=== PATIENT | male | born 1970 | race Caucasian/White ===

== ENCOUNTER 2020-08-11 15:40 | Observation (INO) ==
--- NOTE | 2020-08-11 16:08 | Emergency Department Note ---
Impression & Plan Chest pain, Hypertension, Abnormal ECG ED Provider Note NAME: MALINDA CHANDLER AGE: 50 SEX: M : 1970 ARRIVES VIA: Walk-In INFORMANT: Patient ED PROVIDER(S): Guero Knight DO CHIEF COMPLAINT: Chest pain HPI: Patient is a 42-year-old male who presents to the ER for chest pain and abnormal EKG. Patient notes that he has not seen a doctor for several years and start following up with a PCP. He was found to have high blood pressure. He was having chest pain intermittently over the past month. He notes he gets this daily. Is not associated with exertion. Last for several minutes and feels like a pressure. No shortness of breath, arm or jaw pain that he can think of. He has extensive family history of MIs starting at the age of 40s. He denies any chest pain now. No belly pain nausea vomiting or diarrhea. No dysuria urgency or frequency. ROS: See above HPI for pertinent positives & negatives. A total of 10 systems reviewed and were otherwise negative. PAST MEDICAL HISTORY:See Below PAST SURGICAL HISTORY:See Below FAMILY HISTORY:See Below SOCIAL HISTORY:See Below HOME MEDICATIONS:See Below ALLERGIES:See Below VITALS:See Below PHYSICAL EXAMINATION: GENERAL: Sitting up in bed, alert, well appearing, well nourished, no distress, non-toxic EYE EXAM: normal conjunctiva. OROPHARYNX: no exudate, no erythema, lips, buccal mucosa, and tongue normal and mucous membranes are moist NECK: supple, no nuchal rigidity, no adenopathy, non-tender LUNGS: Clear to auscultation. Normal chest wall mechanics HEART: no murmurs, S1 normal and S2 normal ABDOMEN: abdomen soft, non-tender, normo-active bowel sounds, no masses, no rebound or guarding. UPPER EXTREMITIES: upper extremities are grossly normal. LOWER EXTREMITIES: No pitting edema. Calves are equal bilateral NEURO EXAM: Normal sensorium, cranial nerves II-XII grossly intact, normal speech, no gross weakness of arms, no gross weakness of legs. MEDICAL DECISION MAKING: Patient is a 50-year-old male who presents ER for chest pain which has been intermittent over the past month. Seen by PCP found to have abnormal EKG referred in. IV was established blood work was obtained. Labs show no significant leukocytosis or anemia. BMP with LFTs bilirubin was unremarkable. Lipase was normal. Troponin was detectable but not positive. Covid was negative. Chest x-ray unremarkable. EKG did have ST wave changes. Discussed with the hospitalist for further evaluation. Patient was given IV labetalol for systolic pressures in the 200s. Triage Nursing notes reviewed. Limited review of prior medical records performed Vital Signs: reviewed and remarkable for HTN Differential diagnosis: Differential diagnoses includes but is not limited to acute coronary syndrome, myocardial infarction, pericarditis, pulmonary embolus, aortic dissection, pneumonia, pneumothorax, musculoskeletal, shingles, esophageal. ER treatment provided: See below Diagnostics interpreted by me: ECG: Sinus rhythm rate of 73 T wave flattening the high lateral leads T wave inversion in inferior leads ST depressions in the lateral leads with T wave inversion Cardiac Monitoring: An order was placed for continuous cardiac monitoring. The monitor shows a rate of 72 with sinus rhythm. Laboratory studies: As stated above and show below. Imaging studies: Portable AP upright 1 view of the chest shows no focal infiltrate or pneumothorax Consultation(s): none Procedures: none Critical Care: None Past Med/Surg History Family History (Updated 08/11/20 @ 18:25 by Pita Gil MD) Father Myocardial infarction Other Diabetes Heart disease Social History (Updated 08/11/20 @ 18:25 by Pita Gil MD) Tobacco Type: Smokeless Tobacco (Dip or Chew) Do You Dip or Chew Tobacco: Yes; Hx Alcohol Use: Yes Alcohol type: beer Hx Substance Use: No Feels Safe at Home: Yes Allergies Allergies Allergy/AdvReac Type Severity Reaction Status Date / Time Penicillins Allergy Intermediate HIVES Verified 08/11/20 16:22 Home Meds Home Medications Medication Instructions Recorded Confirmed lisinopril 10 mg PO BID 08/11/20 08/11/20 Results & Data (ED) Vital Signs Vital Signs - 24 hr 08/11/20 15:43 08/11/20 16:00 08/11/20 16:02 Temperature 36.6 C Temperature Source Oral Pulse Rate 78 83 81 Pulse Rate from SpO2 Sensor 83 83 Pulse Rhythm Respiratory Rate 18 25 H 15 Blood Pressure 201/115 H 181/113 H Blood Pressure Mean 143 135 Pulse Oximetry 96 98 97 Oxygen Delivery Method Sepsis Recent Fever Within 48 Hours No Sepsis New/Unexplained Change in Mental Status No Sepsis Action Taken by Nursing No Action Required 08/11/20 16:10 08/11/20 16:12 08/11/20 16:20 Temperature Temperature Source Pulse Rate 67 66 66 Pulse Rate from SpO2 Sensor 68 70 Pulse Rhythm Regular Respiratory Rate 16 12 Blood Pressure Blood Pressure Mean Pulse Oximetry 97 97 94 Oxygen Delivery Method Room Air Sepsis Recent Fever Within 48 Hours Sepsis New/Unexplained Change in Mental Status Sepsis Action Taken by Nursing 08/11/20 16:30 08/11/20 16:35 08/11/20 16:40 Temperature Temperature Source Pulse Rate 77 74 70 Pulse Rate from SpO2 Sensor 77 74 69 Pulse Rhythm Respiratory Rate 13 18 26 H Blood Pressure 184/118 H 183/104 H Blood Pressure Mean 140 130 Pulse Oximetry 96 96 96 Oxygen Delivery Method Sepsis Recent Fever Within 48 Hours Sepsis New/Unexplained Change in Mental Status Sepsis Action Taken by Nursing 08/11/20 16:45 08/11/20 16:50 08/11/20 17:00 Temperature Temperature Source Pulse Rate 65 64 69 Pulse Rate from SpO2 Sensor 65 71 67 Pulse Rhythm Respiratory Rate 14 15 12 Blood Pressure 168/95 H 159/93 H Blood Pressure Mean 119 115 Pulse Oximetry 95 91 97 Oxygen Delivery Method Sepsis Recent Fever Within 48 Hours Sepsis New/Unexplained Change in Mental Status Sepsis Action Taken by Nursing 08/11/20 17:10 08/11/20 17:15 08/11/20 17:20 Temperature Temperature Source Pulse Rate 64 67 76 Pulse Rate from SpO2 Sensor 65 69 76 Pulse Rhythm Respiratory Rate 14 24 Blood Pressure 175/107 H Blood Pressure Mean 129 Pulse Oximetry 96 98 92 Oxygen Delivery Method Sepsis Recent Fever Within 48 Hours Sepsis New/Unexplained Change in Mental Status Sepsis Action Taken by Nursing 08/11/20 17:30 08/11/20 17:47 08/11/20 17:48 Temperature Temperature Source Pulse Rate 68 76 69 Pulse Rate from SpO2 Sensor 68 74 69 Pulse Rhythm Respiratory Rate 14 17 15 Blood Pressure 166/104 H 191/121 H Blood Pressure Mean 124 144 Pulse Oximetry 96 98 97 Oxygen Delivery Method Sepsis Recent Fever Within 48 Hours Sepsis New/Unexplained Change in Mental Status Sepsis Action Taken by Nursing 08/11/20 17:49 08/11/20 17:51 08/11/20 18:00 Temperature Temperature Source Pulse Rate 73 72 66 Pulse Rate from SpO2 Sensor 73 72 66 Pulse Rhythm Respiratory Rate 22 25 H 21 Blood Pressure 171/115 H 185/111 H Blood Pressure Mean 133 135 Pulse Oximetry 97 98 95 Oxygen Delivery Method Sepsis Recent Fever Within 48 Hours Sepsis New/Unexplained Change in Mental Status Sepsis Action Taken by Nursing 08/11/20 18:10 08/11/20 18:15 08/11/20 18:20 Temperature Temperature Source Pulse Rate 61 67 58 L Pulse Rate from SpO2 Sensor 61 69 57 L Pulse Rhythm Respiratory Rate 10 L 15 3 L Blood Pressure 178/95 H Blood Pressure Mean 122 Pulse Oximetry 95 94 96 Oxygen Delivery Method Sepsis Recent Fever Within 48 Hours Sepsis New/Unexplained Change in Mental Status Sepsis Action Taken by Nursing 08/11/20 18:30 08/11/20 18:40 08/11/20 18:45 Temperature Temperature Source Pulse Rate 59 L 61 63 Pulse Rate from SpO2 Sensor 61 63 62 Pulse Rhythm Respiratory Rate 8 L 20 10 L Blood Pressure 143/91 H 167/102 H Blood Pressure Mean 108 123 Pulse Oximetry 96 96 98 Oxygen Delivery Method Sepsis Recent Fever Within 48 Hours Sepsis New/Unexplained Change in Mental Status Sepsis Action Taken by Nursing 08/11/20 18:50 08/11/20 19:00 08/11/20 19:10 Temperature Temperature Source Pulse Rate 62 56 L 77 Pulse Rate from SpO2 Sensor 62 57 L 69 Pulse Rhythm Respiratory Rate 11 L 12 14 Blood Pressure 180/93 H Blood Pressure Mean 122 Pulse Oximetry 95 97 94 Oxygen Delivery Method Sepsis Recent Fever Within 48 Hours Sepsis New/Unexplained Change in Mental Status Sepsis Action Taken by Nursing 08/11/20 19:15 08/11/20 19:20 08/11/20 19:30 Temperature Temperature Source Pulse Rate 62 59 L 61 Pulse Rate from SpO2 Sensor 60 60 61 Pulse Rhythm Respiratory Rate 18 17 Blood Pressure 160/98 H 155/93 H Blood Pressure Mean 118 113 Pulse Oximetry 96 95 99 Oxygen Delivery Method Sepsis Recent Fever Within 48 Hours Sepsis New/Unexplained Change in Mental Status Sepsis Action Taken by Nursing 08/11/20 19:40 08/11/20 19:45 08/11/20 19:50 Temperature Temperature Source Pulse Rate 60 61 64 Pulse Rate from SpO2 Sensor 58 L 60 65 Pulse Rhythm Respiratory Rate 12 16 23 Blood Pressure 145/93 H Blood Pressure Mean 110 Pulse Oximetry 96 97 98 Oxygen Delivery Method Sepsis Recent Fever Within 48 Hours Sepsis New/Unexplained Change in Mental Status Sepsis Action Taken by Nursing 08/11/20 20:00 Temperature Temperature Source Pulse Rate 63 Pulse Rate from SpO2 Sensor 61 Pulse Rhythm Respiratory Rate 8 L Blood Pressure Blood Pressure Mean Pulse Oximetry 95 Oxygen Delivery Method Sepsis Recent Fever Within 48 Hours Sepsis New/Unexplained Change in Mental Status Sepsis Action Taken by Nursing Laboratory Data Result diagrams: 08/11/20 15:58 08/11/20 15:58 Lab Results 08/11/20 08/11/20 08/11/20 Range/Units 15:58 15:58 16:10 WBC 7.44 (4.8-10.8) K/uL RBC 4.95 (4.7-6.1) M/uL Hgb 15.0 (14.0-18.0) g/dL Hct 43.7 (42-52) % MCV 88.3 (80-100) fL MCH 30.3 (25-34) pg MCHC 34.3 (32-36) g/dL RDW Std Deviation 39.2 (36.4-46.3) fL RDW Coeff of [place] 12.3 (11.5-14.5) % Plt Count 243 (130-400) K/uL MPV 10.6 H (7.4-10.4) fL Immature Gran % (Auto) 0.3 % Neut % (Auto) 58.0 % Lymph % (Auto) 29.3 % Esmeralda % (Auto) 7.7 % Eos % (Auto) 4.2 % Baso % (Auto) 0.5 % Neut # (Auto) 4.32 (1.4-6.5) K/uL Lymph # (Auto) 2.18 (1.2-3.4) K/uL Esmeralda # (Auto) 0.57 (0.11-0.59) K/uL Eos # (Auto) 0.31 (0-0.5) K/uL Baso # (Auto) 0.04 (0-0.2) K/uL Immature Gran # (Auto) 0.02 (0.00-0.02) K/uL APTT 27.2 (21.0-31.0) Seconds PTT Ratio 1.0 Sodium 139 (136-145) mmol/L Potassium 3.7 (3.5-5.1) mmol/L Chloride 106 (98-107) mmol/L Carbon Dioxide 28 (21-32) mmol/L Anion Gap 5.0 (3-11) BUN 14 (7-18) mg/dl Creatinine 1.04 (0.6-1.4) mg/dl Est Cr Clr Drug Dosing 113.3 ml/min Est GFR ( Amer) 97.9 ml/min Est GFR (Non-Af Amer) 84.5 ml/min BUN/Creatinine Ratio 13.6 (10-20) Glucose 100 H (70-99) mg/dl Calcium 8.9 (8.5-10.1) mg/dl Total Bilirubin 0.6 (0.2-1) mg/dl AST 13 L (15-37) U/L ALT 35 (12-78) U/L Alkaline Phosphatase 71 (45-117) U/L Troponin I 0.016 (0-0.045) ng/ml Total Protein 7.7 (6.4-8.2) gm/dl Albumin 4.0 (3.4-5.0) gm/dl Globulin 3.7 (2.5-4.0) gm/dl Albumin/Globulin Ratio 1.1 (0.9-2) Lipase 106 (73-393) U/L COVID-19 Eval Order SARS-CoV-2 (PCR) (Negative) 08/11/20 08/11/20 Range/Units 16:37 16:37 WBC (4.8-10.8) K/uL RBC (4.7-6.1) M/uL Hgb (14.0-18.0) g/dL Hct (42-52) % MCV (80-100) fL MCH (25-34) pg MCHC (32-36) g/dL RDW Std Deviation (36.4-46.3) fL RDW Coeff of [place] (11.5-14.5) % Plt Count (130-400) K/uL MPV (7.4-10.4) fL Immature Gran % (Auto) % Neut % (Auto) % Lymph % (Auto) % Esmeralda % (Auto) % Eos % (Auto) % Baso % (Auto) % Neut # (Auto) (1.4-6.5) K/uL Lymph # (Auto) (1.2-3.4) K/uL Esmeralda # (Auto) (0.11-0.59) K/uL Eos # (Auto) (0-0.5) K/uL Baso # (Auto) (0-0.2) K/uL Immature Gran # (Auto) (0.00-0.02) K/uL APTT (21.0-31.0) Seconds PTT Ratio Sodium (136-145) mmol/L Potassium (3.5-5.1) mmol/L Chloride (98-107) mmol/L Carbon Dioxide (21-32) mmol/L Anion Gap (3-11) BUN (7-18) mg/dl Creatinine (0.6-1.4) mg/dl Est Cr Clr Drug Dosing ml/min Est GFR ( Amer) ml/min Est GFR (Non-Af Amer) ml/min BUN/Creatinine Ratio (10-20) Glucose (70-99) mg/dl Calcium (8.5-10.1) mg/dl Total Bilirubin (0.2-1) mg/dl AST (15-37) U/L ALT (12-78) U/L Alkaline Phosphatase (45-117) U/L Troponin I (0-0.045) ng/ml Total Protein (6.4-8.2) gm/dl Albumin (3.4-5.0) gm/dl Globulin (2.5-4.0) gm/dl Albumin/Globulin Ratio (0.9-2) Lipase (73-393) U/L COVID-19 Eval Order Covid19 at [facility] SARS-CoV-2 (PCR) NEGATIVE (Negative) Administered Medications Discontinued Medications Aspirin (Aspirin Chew 324 Mg) 324 mg PO NOW STA Stop: 08/11/20 16:11 Last Admin: 08/11/20 16:28 Dose: 324 mg Documented by: [id number] Labetalol HCl (Labetalol Hcl Iv 5 Mg/Ml 20ml) 10 mg IV NOW STA Stop: 08/11/20 16:15 Last Admin: 08/11/20 16:28 Dose: 10 mg Documented by: [id number] Cosigned by: [id number] Imaging Data Radiologist's Impression: Chest X-Ray 08/11/20 16:04 XR chest 1V portable CLINICAL HISTORY: Chest Pain COMPARISON STUDY: No previous studies for comparison. FINDINGS: No pneumothorax. No pleural effusion. No large infiltrates or consolidative lesions are seen. Cardiomediastinal silhouette is within normal limits in size. No significant pulmonary vascular congestion.. Osseous structures: Mild degenerative changes of the spine. IMPRESSION: 1. No acute pulmonary process. ACT 112: Negative or not required by law. The above report was generated using voice recognition software. It may contain grammatical, syntax or spelling errors. Electronically signed by: Gisella Christopher DO 08/11/2020 5:42 PM Discharge Plan Visit Data Chief Complaint: Abnormal Labs/Diagnostic Testing Stated Complaint: ABN EKG,HEART RELATED,REF BY DOC ED Provider: Guero Knight Discharge Problem: Chest pain, Hypertension, Abnormal ECG Forms Stand Alone Forms: Site Tour Prescriptions Prescriptions: No Action lisinopril 10 mg tablet 10 mg PO BID RF: 0 Discharge Problem: Chest pain Qualifiers: Chest pain type: unspecified Qualified Code(s): R07.9 - Chest pain, unspecified Hypertension Qualifiers: Hypertension type: unspecified Qualified Code(s): I10 - Essential (primary) hypertension
[2020-08-11] MEDS ORDERED: ASPIRIN CHEW 324 MG PO STA (16:10)
[2020-08-11 16:11] LABS: Basophils # (auto) 0.04 K/uL (0-0.2); Basophils % (auto) 0.5 %; Eosinophils # (auto) 0.31 K/uL (0-0.5); Eosinophils % (auto) 4.2 %; Hematocrit (blood only) 43.7 % (42-52); Immature Granulocytes # (auto) 0.02 K/uL (0.00-0.02); Immature Granulocytes % (auto) 0.3 %; Lymphocytes # (auto) 2.18 K/uL (1.2-3.4); Lymphocytes % (auto) 29.3 %; Mean Corpuscular Hemoglobin 30.3 pg (25-34); Mean Corpuscular Hgb Conc 34.3 g/dL (32-36); Mean Corpuscular Volume 88.3 fL (80-100); Mean Platelet Volume 10.6 fL (7.4-10.4); Monocytes # (auto) 0.57 K/uL (0.11-0.59); Monocytes % (auto) 7.7 %; Neutrophils # (auto) 4.32 K/uL (1.4-6.5); Platelet Count 243 K/uL (130-400); RDW Coefficient of Variation 12.3 % (11.5-14.5); RDW Standard Deviation 39.2 fL (36.4-46.3); Red Blood Count 4.95 M/uL (4.7-6.1); White Blood Count 7.44 K/uL (4.8-10.8)
[2020-08-11] MEDS ORDERED: LABETALOL HCL IV 5 MG/ML 20ML IV STA (16:14)
[2020-08-11 16:31] LABS: Partial Thromboplastin Time 27.2 Seconds (21.0-31.0)
[2020-08-11 16:32] LABS: BUN Creatinine Ratio 13.6 (10-20); Calcium 8.9 mg/dl (8.5-10.1); Creatinine Clr Calc Pharmacy 113.3 ml/min; Est GFR (African American) 97.9 ml/min; Est GFR (Non-African American) 84.5 ml/min; Potassium 3.7 mmol/L (3.5-5.1)
[2020-08-11 16:37] LABS: Albumin Globulin Ratio 1.1 (0.9-2); Bilirubin,Total 0.6 mg/dl (0.2-1); Globulin 3.7 gm/dl (2.5-4.0); Total Protein 7.7 gm/dl (6.4-8.2); Troponin I 0.016 ng/ml (0-0.045)
--- NOTE | 2020-08-11 17:17 | History & Physical Report ---
Date of Service August 11, 2020 Assessment & Plan (1) Chest pain: 50 yo M with no prior medical hx admitted for chest pain rule out. Chest Pain - trop trending. initially 0.016, received 325 aspirin in ER as well as 10 mg labetalol. 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 daily EKG. - A1c - ECHO in AM, may benefit from outpatient stress test if no major changes on ECHO. - recently established care at [facility] -- labs done on 06/28/20 show Chol 203, LDL 148, HDL 28, TG 137. Fasting blood glucose elevated to 109. - Cardiac risk factors: hypercholesterolemia, Fmhx RI, hx alcohol use, - 10% ASCVD 10 year risk; started on high intensity statin - daily 81 mg ASA Uncontrolled HTN - increased lisinopril to 20 mg BID - added 2.5 amlodipine daily - salt restriction eduction DVT ppx: ad annelise activity FEN/GI: heart healthy, low salt diet Code Status: Full Code Dispo: Med/Surg w tele History of Present Illness 50 yo M who hasn't seen a provider in many years presenting to ER for chest pain intermittent for 1 month. BP on admission to ER was elevated to 201/115. He describes having on and off sx of chest pressure for the past month without any pattern. He states these happened during rest and during exercise. He had no notable shortness of breath that came with these episodes and they self resolved. Fmhx significant for father having an RI at 47, heart disease and DM2 in family as well. Denies any smoking hx but does chew tobacco multiple times a day.No IVDU or street drug use. No vaping. Hx of binge drinking alcohol in college, drinking 3 beers nightly for 10-15 years following that. Now mostly drinks socially and infrequently. Primary Care Provider: NO PCP Allergies Allergy/AdvReac Type Severity Reaction Status Date / Time Penicillins Allergy Intermediate HIVES Verified 08/11/20 16:22 Home Medications Medication Instructions Recorded Confirmed Type lisinopril 10 mg PO BID 08/11/20 08/11/20 History Past Med/Surg History Family History (Updated 08/11/20 @ 18:25 by Pita Gil MD) Father Myocardial infarction Other Diabetes Heart disease Social History (Updated 08/11/20 @ 18:25 by Pita Gil MD) Tobacco Type: Smokeless Tobacco (Dip or Chew) Do You Dip or Chew Tobacco: Yes; Hx Alcohol Use: Yes Alcohol type: beer Hx Substance Use: No Feels Safe at Home: Yes Review of Systems Constitutional: no fever, no chills, no sweats and no fatigue Eyes: no blind spots and no discharge Ear, Nose, Mouth, Throat: no hearing loss and no nasal congestion Respiratory: no cough and no dyspnea Cardiovascular: + chest pain; no dyspnea on exertion and no edema Gastrointestinal: no abdominal pain, no nausea, no vomiting, no constipation, no diarrhea/loose stools and no blood in stools Musculoskeletal: no joint pain and no myalgia Neurologic: no tingling, no numbness and no headache(s) Endocrine: no fatigue Physical Exam Physical Exam: Constitutional: middle aged man sitting up in bed in NAD Eyes: EOMI, pupils equal and reactive bilaterally, no scleral icterus Cardiac: RRR, no murmurs, gallops or rubs. Normal S1, S2 Pulm: CTA BL, no wheezes, rhonchi, crackles or rubs, moving air well throughout both lungs Abd: soft, nontender, nondistended, normal bowel sounds, no rebound or guarding Extremities: 2+ peripheral pulses, no edema, large muscular bulk Neuro: no focal deficits, moving all 4 limbs, A&Ox3 Results & Data Results & Data ([facility]) Vital Signs (Past 12 Hours) Vital Signs Temp Pulse Resp BP Pulse Ox 08/11/20 16:50 64 15 91 08/11/20 16:45 65 14 168/95 H 95 08/11/20 16:40 70 26 H 96 08/11/20 16:35 74 18 183/104 H 96 08/11/20 16:30 77 13 184/118 H 96 08/11/20 16:20 66 94 08/11/20 16:12 66 12 97 08/11/20 16:10 67 16 97 08/11/20 16:02 81 15 97 08/11/20 16:00 83 25 H 181/113 H 98 08/11/20 15:43 36.6 C 78 18 201/115 H 96 Laboratory Results WBC 7.44 K/uL (4.8-10.8) 08/11/20 15:58 RBC 4.95 M/uL (4.7-6.1) 08/11/20 15:58 Hgb 15.0 g/dL (14.0-18.0) 08/11/20 15:58 Hct 43.7 % (42-52) 08/11/20 15:58 MCV 88.3 fL (80-100) 08/11/20 15:58 MCH 30.3 pg (25-34) 08/11/20 15:58 MCHC 34.3 g/dL (32-36) 08/11/20 15:58 RDW Std Deviation 39.2 fL (36.4-46.3) 08/11/20 15:58 RDW Coeff of Estevan 12.3 % (11.5-14.5) 08/11/20 15:58 Plt Count 243 K/uL (130-400) 08/11/20 15:58 MPV 10.6 fL (7.4-10.4) H 08/11/20 15:58 Immature Gran % (Auto) 0.3 % 08/11/20 15:58 Neut % (Auto) 58.0 % 08/11/20 15:58 Lymph % (Auto) 29.3 % 08/11/20 15:58 [place] % (Auto) 7.7 % 08/11/20 15:58 Eos % (Auto) 4.2 % 08/11/20 15:58 Baso % (Auto) 0.5 % 08/11/20 15:58 Neut # (Auto) 4.32 K/uL (1.4-6.5) 08/11/20 15:58 Lymph # (Auto) 2.18 K/uL (1.2-3.4) 08/11/20 15:58 [place] # (Auto) 0.57 K/uL (0.11-0.59) 08/11/20 15:58 Eos # (Auto) 0.31 K/uL (0-0.5) 08/11/20 15:58 Baso # (Auto) 0.04 K/uL (0-0.2) 08/11/20 15:58 Immature Gran # (Auto) 0.02 K/uL (0.00-0.02) 08/11/20 15:58 APTT 27.2 Seconds (21.0-31.0) 08/11/20 16:10 PTT Ratio 1.0 08/11/20 16:10 Sodium 139 mmol/L (136-145) 08/11/20 15:58 Potassium 3.7 mmol/L (3.5-5.1) 08/11/20 15:58 Chloride 106 mmol/L (98-107) 08/11/20 15:58 Carbon Dioxide 28 mmol/L (21-32) 08/11/20 15:58 Anion Gap 5.0 (3-11) 08/11/20 15:58 BUN 14 mg/dl (7-18) 08/11/20 15:58 Creatinine 1.04 mg/dl (0.6-1.4) 08/11/20 15:58 Est Cr Clr Drug Dosing 113.3 ml/min 08/11/20 15:58 Est GFR ( Amer) 97.9 ml/min 08/11/20 15:58 Est GFR (Non-Af Amer) 84.5 ml/min 08/11/20 15:58 BUN/Creatinine Ratio 13.6 (10-20) 08/11/20 15:58 Glucose 100 mg/dl (70-99) H 08/11/20 15:58 Calcium 8.9 mg/dl (8.5-10.1) 08/11/20 15:58 Total Bilirubin 0.6 mg/dl (0.2-1) 08/11/20 15:58 AST 13 U/L (15-37) L 08/11/20 15:58 ALT 35 U/L (12-78) 08/11/20 15:58 Alkaline Phosphatase 71 U/L (45-117) 08/11/20 15:58 Troponin I 0.016 ng/ml (0-0.045) 08/11/20 15:58 Total Protein 7.7 gm/dl (6.4-8.2) 08/11/20 15:58 Albumin 4.0 gm/dl (3.4-5.0) 08/11/20 15:58 Globulin 3.7 gm/dl (2.5-4.0) 08/11/20 15:58 Albumin/Globulin Ratio 1.1 (0.9-2) 08/11/20 15:58 Lipase 106 U/L (73-393) 08/11/20 15:58 COVID-19 Eval Order Covid19 at [facility] 08/11/20 16:37 SARS-CoV-2 (PCR) NEGATIVE (Negative) 08/11/20 16:37 Impressions Chest X-Ray 08/11/20 16:04 XR chest 1V portable CLINICAL HISTORY: Chest Pain COMPARISON STUDY: No previous studies for comparison. FINDINGS: No pneumothorax. No pleural effusion. No large infiltrates or consolidative lesions are seen. Cardiomediastinal silhouette is within normal limits in size. No significant pulmonary vascular congestion.. Osseous structures: Mild degenerative changes of the spine. IMPRESSION: 1. No acute pulmonary process. ACT 112: Negative or not required by law. The above report was generated using voice recognition software. It may contain grammatical, syntax or spelling errors. Electronically signed by: Gisella Christopher DO 08/11/2020 5:42 PM Supervising Physician Co-Signing Physician Notes Attending addendum: I have physically seen this patient, have supervised the medical residents activities, and agree with the H&P unless as otherwise noted. Assessment and Plan: Chest pain of uncertain etiology/uncontrolled hypertension- The patient will be admitted to telemetry for serial cardiac enzymes, serial EKG's, cardiac rhythm monitoring and a 2-D echocardiogram with Dopplers. Initial troponin 0.016. EKG with Q waves in leads III and aVF, and minor ST depressions in V5 and V6 Present dosing of medications with lisinopril 10 mg p.o. twice daily, which we increased 20 g p.o. twice daily with first dose tonight Add amlodipine 2.5 mg p.o. twice daily first dose tonight Received aspirin 325 mg p.o. today, and will place on 81 mg daily If pressure does not improve with check a fasting lipid panel and hemoglobin A1c 3 hours of the above changes, would add Nitropaste 1 inch anterior chest wall every 6 hours Consult cardiology Resident Activity Tracking Resident Involvement: Resident Care Provided Care Provided: Adult [facility] Medicine
--- NOTE | 2020-08-11 17:43 | XRay Report ---
XR chest 1V portable CLINICAL HISTORY: Chest Pain COMPARISON STUDY: No previous studies for comparison. FINDINGS: No pneumothorax. No pleural effusion. No large infiltrates or consolidative lesions are seen. Cardiomediastinal silhouette is within normal limits in size. No significant pulmonary vascular congestion.. Osseous structures: Mild degenerative changes of the spine. IMPRESSION: 1. No acute pulmonary process. ACT 112: Negative or not required by law. The above report was generated using voice recognition software. It may contain grammatical, syntax o r spelling errors. Electronically signed by: Gisella Christopher DO 08/11/2020 5:42 PM
--- NOTE | 2020-08-11 18:53 | Billing Data ---
Date of Service August 11, 2020 Coding Level of Care Code 93240 OBS Care - Level 3
[2020-08-11] MEDS ORDERED: ONDANSETRON INJ 2 MG/ML 2 ML VIAL IV PRN (21:38)
[2020-08-11] MEDS ORDERED: ACETAMINOPHEN 325 MG TAB PO PRN (21:38)
[2020-08-11] MEDS ORDERED: NITROGLYCERIN SL 0.4 MG/TAB TAB SL PRN (21:38)
[2020-08-11] MEDS: lisinopril 20 MG TAB PO SCH (22:10)
[2020-08-11] MEDS ORDERED: hydrALAZINE HCL 20 MG/ML VIAL IV PRN (22:45)
[2020-08-12 05:20] LABS: BUN Creatinine Ratio 13.7 (10-20); Blood Urea Nitrogen 13 mg/dl (7-18); Calcium 8.8 mg/dl (8.5-10.1); Carbon Dioxide 30 mmol/L (21-32); Chloride 107 mmol/L (98-107); Creatinine Clr Calc Pharmacy 121.9 ml/min; Est GFR (African American) 107.9 ml/min; Est GFR (Non-African American) 93.1 ml/min; Glucose 88 mg/dl (70-99); Potassium 3.8 mmol/L (3.5-5.1); Sodium 140 mmol/L (136-145)
[2020-08-12 05:25] LABS: Troponin I < 0.015 ng/ml (0-0.045)
[2020-08-12 05:44] LABS: Estimated Average Glucose 114 mg/dl; Hemoglobin A1C 5.6 % (4.5-5.6)
--- NOTE | 2020-08-12 07:33 | Electrocardiogram Report ---
Test Reason : Blood Pressure : / mmHG Vent. Rate : 073 BPM Atrial Rate : 073 BPM P-R Int : 140 ms QRS Dur : 094 ms QT Int : 390 ms P-R-T Axes : 027 003 -57 degrees QTc Int : 429 ms Normal sinus rhythm Cannot rule out Old Inferior infarct Nonspecific T wave abnormality Lateral leads Abnormal ECG No previous ECGs available Confirmed by Anselmo Garibay ([id number]) on 08/12/2020 7:33:16 AM Referred By: REFERRED SELF Confirmed By:Anselmo Garibay
[2020-08-12] MEDS: lisinopril 20 MG TAB PO SCH (07:38)
--- NOTE | 2020-08-12 08:07 | Hospitalist Progress Note ---
Date of Service August 12, 2020 Assessment & Plan (1) Chest pain: (2) Hypertension: (3) Abnormal ECG: Admission and Anticipated Discharge Date Admission Date: August 11, 2020 Results & Data Results & Data ([facility]) Vital Signs (Past 12 Hours) Vital Signs Temp Pulse Pulse Resp BP BP Pulse Ox 08/12/20 07:23 60 08/12/20 07:05 36.7 C 65 16 148/94 H 95 08/12/20 02:38 36.7 C 73 17 143/85 H 96 08/11/20 23:22 56 L 08/11/20 22:56 36.8 C 60 18 147/92 H 97 08/11/20 22:26 36.5 C 62 18 199/136 H 98 08/11/20 22:00 64 08/11/20 20:40 62 14 98 08/11/20 20:30 60 16 141/100 H 92 08/11/20 20:20 61 100 08/11/20 20:15 66 13 196/95 H 99 08/11/20 20:10 66 22 99 PG Care Time/CCT Total # of Minutes Spent Total Time Spent with Patient: Total time spent is greater than 50% in coordination of care (as documented) at patient's floor/unit and/or counseling patient: Coding Diagnoses Chest pain R07.9 Chest pain type: unspecified Hypertension I10 Hypertension type: unspecified Abnormal ECG R94.31 (1) Chest pain Chest pain type: unspecified Qualified Code(s): R07.9 - Chest pain, unspecified (2) Hypertension Hypertension type: unspecified Qualified Code(s): I10 - Essential (primary) hypertension
[2020-08-12 08:54] LABS: Chol HDL Ratio 7; Cholesterol 187 mg/dl (0-200); HDL Cholesterol 27 mg/dl; LDL Cholesterol Calculated 108 mg/dl; Triglycerides 259 mg/dl (0-150); VLDL Cholesterol 52 mg/dl
[2020-08-12] MEDS ORDERED: ATORVASTATIN 40 MG TAB PO SCH (09:00)
[2020-08-12] MEDS ORDERED: ASPIRIN 81 MG ECTAB PO SCH (09:00)
[2020-08-12] MEDS ORDERED: amLODIPine BESYLATE 5 MG TAB PO SCH (09:00)
--- NOTE | 2020-08-12 10:04 | Cardiology Consultation ---
Date of Consultation August 12, 2020 Assessment & Plan (1) Atypical chest pain: (2) Uncontrolled hypertension: (3) Low HDL (under 40): (4) Abnormal ECG: Patient with significant vascular risk factors but atypical chest pain on presentation ruled out for acute myocardial process. Given his risk factors, prudent to proceed with outpatient stress testing, will schedule this for sometime in the next several weeks. Agree with daily aspirin given his vascular risk. Agree with amlodipine for hypertension, could increase to 5 mg daily given his large body habitus and persistent hypertension. Would add clonidine 0.1 mg up to twice daily PRN systolic blood pressure 180 mmHg or greater, this will allow him an option for immediately treating extreme blood pressure elevations. Absence of significant LVH on echocardiogram suggests that his hypertension may be labile and partly situational, if this is the case he should respond particularly well to clonidine. Low HDL dyslipidemia places him at high risk for future vascular disease, agree with initiating atorvastatin 40 mg daily to aggressively lower LDL (goal less than 70 given his low HDL and other risk factors). Would be helpful for him to have a copy of his ECG, possible old inferior infarct is a false positive given his normal wall motion on echocardiogram. Case discussed with Tavia Collins PA-C. History of Present Illness Reason for Consultation: Chest pain. Requesting Physician: Daniele Trinh MD Attending Physician: Daniele Trinh MD History of Present Illness 50-year-old generally healthy man with no cardiac history but multiple vascular risk factors (hypertension, low HDL dyslipidemia, obesity, strong family history of CAD) who was admitted 08/11/2020 with intermittently recurring chest discomfort. He describes rather atypical chest pain occurring intermittently over the past month, lasting only seconds, not related to activity, no associated symptoms. He was observed overnight, telemetry is benign, troponin negative x3, no further chest symptoms during his hospitalization despite an elevated and labile blood pressure. At the time of my evaluation he was asymptomatic. Allergies Allergy/AdvReac Type Severity Reaction Status Date / Time Penicillins Allergy Intermediate HIVES Verified 08/11/20 16:22 Home Medications Medication Instructions Recorded Confirmed Type amlodipine 5 mg PO DAILY 30 Days #30 tab 08/12/20 Rx aspirin 81 mg PO DAILY #30 tab 08/12/20 Rx atorvastatin 40 mg PO QAM 30 Days #30 tab 08/12/20 Rx clonidine HCl 0.1 mg PO BID PRN 30 Days #30 tab 08/12/20 Rx lisinopril 20 mg PO BID 30 Days #60 tab 08/12/20 Rx Patient History Medical History (Updated 08/12/20 @ 10:36 by Anselmo Garibay MD) Hypertension Family History Diabetes Heart disease Myocardial infarction Father Social History Smoking Status: Never smoker Tobacco Type: Smokeless Tobacco (Dip or Chew) Second Hand Exposure: No; Hx Alcohol Use: Yes Alcohol type: beer Hx Substance Use: No Preferred Language: Mexican Communication Ability: Effective 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 Systolic blood pressure as high as 199/136 mmHg, most recent value 166/96 mmHg. Pulse 60 bpm and regular without ectopy. Skin: no ecchymoses or generalized lesions. HEENT: unremarkable. Neck: no JVD or carotid bruits. Lungs: clear bilaterally. Cardiac: regular rhythm with mildly reduced heart tones (large habitus), normal S1 and S2, no obvious murmur Abdomen: benign. Extremities: no edema, pulses intact. Neurologic: normal affect, nonfocal. Results & Data ([facility]) Vital Signs (Past 12 Hours) Vital Signs Temp Pulse Pulse Resp BP Pulse Ox 08/12/20 08:45 166/96 H 08/12/20 07:23 60 08/12/20 07:05 98.1 F 65 16 148/94 H 95 08/12/20 02:38 98.1 F 73 17 143/85 H 96 08/11/20 23:22 56 L 08/11/20 22:56 98.2 F 60 18 147/92 H 97 08/11/20 22:26 97.7 F 62 18 199/136 H 98 Laboratory Results Normal CBC. Normal electrolytes, BUN 13, creatinine 0.96. Hemoglobin A1c 5.6%. Troponin negative x3. Diagnostic Findings ECG on admission showed sinus rhythm with possible old inferior infarct and nonspecific lateral T wave abnormality. No prior ECG for comparison. Normal echocardiogram. EF 60 to 65% with normal wall motion and normal wall thickness given his large frame body habitus (1.2 cm). No significant valvular disease. Normal chest x-ray. PG Care Time/CCT Total # of Minutes Spent Total Time Spent with Patient: Total time spent is greater than 50% in coordination of care (as documented) at patient's floor/unit and/or counseling patient: Coding Level of Care Code 27347 Office/OBS Consult Lvl 4 Diagnoses Atypical chest pain R07.89 Uncontrolled hypertension I10 Low HDL (under 40) E78.6 Abnormal ECG R94.31
--- NOTE | 2020-08-12 10:12 | Discharge Summary ---
Date of Service August 12, 2020 Admission HPI Per Admitting Provider 50 yo M who hasn't seen a provider in many years presenting to ER for chest pain intermittent for 1 month. BP on admission to ER was elevated to 201/115. He describes having on and off sx of chest pressure for the past month without any pattern. He states these happened during rest and during exercise. He had no notable shortness of breath that came with these episodes and they self resolved. Fmhx significant for father having an OR at 47, heart disease and DM2 in family as well. Denies any smoking hx but does chew tobacco multiple times a day.No IVDU or street drug use. No vaping. Hx of binge drinking alcohol in college, drinking 3 beers nightly for 10-15 years following that. Now mostly drinks socially and infrequently. Primary Care Provider: NO PCP Admission Exam Per Admitting Provider Constitutional: middle aged man sitting up in bed in NAD Eyes: EOMI, pupils equal and reactive bilaterally, no scleral icterus Cardiac: RRR, no murmurs, gallops or rubs. Normal S1, S2 Pulm: CTA BL, no wheezes, rhonchi, crackles or rubs, moving air well throughout both lungs Abd: soft, nontender, nondistended, normal bowel sounds, no rebound or guarding Extremities: 2+ peripheral pulses, no edema, large muscular bulk Neuro: no focal deficits, moving all 4 limbs, A&Ox3 Principal Diagnosis CP, HTN Urgency Discharge Exam Constitutional WD/WN, vitals as above + obese, cooperative and comfortable; no acute distress Eyes + anicteric sclerae and PERRL ENMT mmm Neck normal visual inspection and trachea midline Respiratory normal respiratory effort, lungs clear to auscultation Cardiovascular RRR, no murmur, no edema Gastrointestinal (Abdomen) normal bowel sounds, soft, nontender, no hepatosplenomegaly Musculoskeletal no cyanosis or clubbing, extremities motor strength 5/5 Skin no rashes, warm and dry Neurologic PERRL, EOMI, accommodation nl, no face palsy, no dysarthria Psychiatric A+Ox3, euthymic affect Lymphatic no cervical or axillary lymphadenopathy Discharge Data Allergies Allergy/AdvReac Type Severity Reaction Status Date / Time Penicillins Allergy Intermediate HIVES Verified 08/11/20 16:22 Consultations 08/11/20 16:10 ED Decision to Admit Stat 08/11/20 21:38 Consult Cardiology Routine Ordered Studies Chest X-Ray 08/11/20 16:04 XR chest 1V portable CLINICAL HISTORY: Chest Pain COMPARISON STUDY: No previous studies for comparison. FINDINGS: No pneumothorax. No pleural effusion. No large infiltrates or consolidative lesions are seen. Cardiomediastinal silhouette is within normal limits in size. No significant pulmonary vascular congestion.. Osseous structures: Mild degenerative changes of the spine. IMPRESSION: 1. No acute pulmonary process. ACT 112: Negative or not required by law. The above report was generated using voice recognition software. It may contain grammatical, syntax or spelling errors. 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 Troponin 0.016 on admission with BP on admission 201/115. Repeat troponin <0.015 x 2 on repeat No further CP reported Did get 325mg ASA and 10mg Labetalol in ER Labs done at [facility] - on 06/28/20 show Chol 203, LDL 148, HDL 28, TG 137. Fasting blood glucose elevated to 109. Repeat lipid panel with TG 259, Chol 187, LDL 108, HDL 52 -- placed on atorvastatin 40mg and continued at discharge. Discussed with patient about elevated LDL and risk factors as he would only like to take that for short term and change diet/exercise to help lower as well with his hopes to d/c in future. ASCVD 10 year risk 10%. Also placed on ASA 81mg daily ECHO: Normal echocardiogram. No prior study for comparison. The left ventricle is normal in size. The left ventricular systolic function is normal. Ejection fraction 60 to 65%. Left ventricular wall motion normal. Normal left ventricular wall thickness. No significant valvular disease. -- absence of significant LVH on ECHO suggesting HTN labile and partly situational (if this is case, clonidine should help nicely) A1c 5.6 Cardiology on consult --> Agreed with increasing lisinopril to 20mg BID, increased amlodipine to 5mg daily (started on 2.5mg daily during admission), as well as addition of clonidine 0.1mg BID prn for SBP >180 They will arrange for an outpatient stress test (2) Hypertension: (3) Abnormal ECG: Q waves noted, but no wma on echocardiogram. Patient left prior to getting copy of EKG but important to note possible old inferior infarct is a false positive given normal wall motion on ECHO Discharged at noon as he needed to get to a graduation democrat. (4) Atypical chest pain: (5) Uncontrolled hypertension: (6) Low HDL (under 40): Total Time Total Time Spent Total Time Spent (In Minutes): 60 Discharge Plan Discharge Items Patient Disposition: Home - Self-Care Reason For Visit: CHEST PAIN Discharge Diagnosis: Chest Pain, HTN urgency Goals: You have been hospitalized for an acute medical problem. During your stay at [facility], we have made an effort to correct the problem that brought you to the hospital while keeping you as comfortable as possible. Medications were used to bring your condition under control and your discharge instructions will include directions for any medications you should take after leaving the hospital. Please make sure you see your Primary Care Provider as part of your follow up plan. Activity: Resume your previous activity Non-emergency contact: Primary Care Provider and Garment Sorter Call non-emergency contact if: you have any medication questions, your symptoms worsen and your pain is not controlled Follow-up/Referrals: Anselmo Garibay MD [Physician] - PCP,NO [Primary Care Provider] - Sejal Zaidi MD [Physician] - (1-2 weeks) Diet: Heart Healthy Addtl Attending Provider Instructions: You have been hospitalized for chest pain and found to have significantly elevated blood pressures. Cardiac enzymes negative but did have minimal elevation initially due to elevated pressures. You have been evaluated by Cardiology, and your lisinopril was increased to 20mg by mouth TWICE daily and amlodipine 5mg by mouth daily was added to gain better control. You should check your blood pressure at home. If BP >180 your should utilize clonidine 0.1mg NEEDED as discussed by myself and cardiology. You have been started on aspirin 81mg daily and should continue this at discharge. Your triglycerides were elevated and you were started on Lipitor 40mg daily for triglycerides/cholesterol however as discussed, recommend making changes to your diet for better control. Per conversation with cardiology, your cholesterol is not that high, but your bad cholesterol is elevated and it is STRONGLY ENCOURAGED to continue to help with your BAD LDL. Your A1c was checked for risk stratification given your family history of diabetes, and this was within normal range at 5.6, however it is noted that 5.7 technically is "pre-diabetes" and you should again watch diet and increase exercise to help with this. An echocardiogram was performed on your heart to evaluated the valves/pumping function and cardiology will be arranging for an outpatient stress test for further evaluation. You will be called on Friday with a follow up appointment with PCP at [facility]. You should follow up with PCP and cardiology after discharge to monitor your progress. Please return to the emergency department with any worsening chest pain, shortness of breath, fever, chills, or for any other symptoms for you. Pending Studies at Discharge: No Stand-Alone Forms: My [facility] Medications and DC Order Prescriptions: New atorvastatin 40 mg Tablet 40 mg PO QAM 30 Days Qty: 30 RF: 1 lisinopril 20 mg Tablet 20 mg PO BID 30 Days Qty: 60 RF: 3 aspirin 81 mg Tablet,Delayed Release (Dr/Ec) 81 mg PO DAILY Qty: 30 RF: 0 amlodipine 5 mg tablet 5 mg PO DAILY 30 Days Qty: 30 RF: 2 clonidine HCl 0.1 mg tablet 0.1 mg PO BID PRN (Reason: hypertension SBP >180) 30 Days Qty: 30 RF: 0 Discontinued lisinopril 10 mg tablet 10 mg PO BID RF: 0 Discharge Orders: Discharge Order (Routine); Ordered 08/12/20 Ordered By: Tavia Collins Admission Data Admit Date/Time: 08/11/20 18:10 Attending Provider: Daniele Trinh Admit Provider: Pita Gil Primary Care Provider: PCP,NO Other Providers: Burak Bello ; Anselmo Garibay Other Interventions: Discharge Summary Assessment (RN) Last Done: 08/12/20 10:19 Coding Level of Care Code 02124 OBS Care - Discharge Diagnoses Chest pain R07.9 Chest pain type: unspecified Hypertension I10 Hypertension type: unspecified Abnormal ECG R94.31 Atypical chest pain R07.89 Uncontrolled hypertension I10 Low HDL (under 40) E78.6
--- NOTE | 2020-08-12 10:16 | XCELERA ---
[id number]
== END 2020-08-12 11:26 | disposition home or self-care (01) ==
LOC: ED 15:40 → 2W 15:40 → SUATTDRO 18:10 → 2W 20:45